=== PATIENT | female | born 1945 | race Caucasian/White ===

== ENCOUNTER 2019-07-06 19:46 | Emergency (ER) | payer OTHER ==
[~2019-07-06] VITALS: Ht 160 cm; Wt 55.1 kg
--- NOTE | 2019-07-06 20:05 | NUR ---
BIB FROM HOME TO ER BED 10. AAOX4. NO RESP DISTRESS NOTED, BREATHING EVEN AND UNLABORED. C/O GEN WEAKNESS AND INTERMITENT CHEST PRESSURE FOR THE PAST 3 DAYS. PT REPORTS THAT SHE HAS BEEN FELLING WEAK FOR AWHILE BUT WORST IN THE PAST FEW DAYS. SHE IS ALSO C/O INTERMITENT CHEST PRESSURE, NON RADIATING WHICH IS NOT PRESENT AT THIS TIME. 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 PT HAS PACE MAKER ON LEFT UPPER CHEST SINUS ON MONITOR. AWAITING MD FOR EVAL.
[2019-07-06] MEDS ORDERED: hydrALAZINE HCL IV 20 MG VIAL ONE (20:28)
[2019-07-06] MEDS ORDERED: hydrALAZINE HCL IV 20 MG VIAL IV ONE (20:30)
[2019-07-06 20:36] LABS: BASOPHILS # (AUTO) 0.1 /CMM (0.0-0.2); BASOPHILS % (AUTO) 1.3 % (0.0-2.0); EOSINOPHILS % (AUTO) 3.4 % (0.0-6.0); HEMATOCRIT 44 % (33-45); HEMOGLOBIN 14.6 g/dL (11.5-14.8); LYMPHOCYTES # (AUTO) 1.5 /CMM (0.8-4.8); LYMPHOCYTES % (AUTO) 17.7 % (20.0-44.0); MEAN CORPUSCULAR HGB CONC 34 g/dl (31.0-36.0); MEAN CORPUSCULAR VOLUME 89 fL (82-100); MONOCYTES # (AUTO) 0.6 /CMM (0.1-1.30); MONOCYTES % (AUTO) 6.8 % (2.0-12.0); NEUTROPHILS # (AUTO) 6.1 /CMM (1.8-8.9); NEUTROPHILS % (AUTO) 70.8 % (43.0-81.0); PLATELET COUNT (AUTO) 277 /CMM (150-450); WHITE BLOOD COUNT (AUTO) 8.6 K/uL (4.3-11.0)
--- NOTE | 2019-07-06 20:36 | NUR ---
WAS AT BEDSIDE FOR EVAL. ORDERS RECEIVED, NOTED AND CARIED OUT. IV LINE OBTAIBNED ON R AC 20G. BLOOD DRAWN AND GIVEN TO FABRIC COATING SUPERVISOR AT BEDSIDE
--- NOTE | 2019-07-06 20:40 | NUR ---
order for apresoline 10mg received from . bp noted at 162/89, verified with md if she still want med to be given and ordered to hold med for now. 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 meds on hold for now
--- NOTE | 2019-07-06 20:43 | NUR ---
Note zachariah in EDM - 07/06/19 at 205 by SIS MD WAS AT BEDSIDE FOR EVAL. ORDERS RECEIVED, NOTED AND CARIED OUT. IV LINE OBTAIBNED ON R AC 20G. BLOOD DRAWN AND GIVEN TO FOOD AND DRUG INSPECTOR AT BEDSIDE
--- NOTE | 2019-07-06 20:43 | NUR ---
WAS AT BEDSIDE FOR EVAL. ORDERS RECEIVED, NOTED AND CARIED OUT. IV LINE OBTAIBNED ON R AC 20G. BLOOD DRAWN AND GIVEN TO CENTRIFUGAL MACHINE TENDER AT BEDSIDE
--- NOTE | 2019-07-06 21:21 | NUR ---
BP OF 161/95 REPORTED TO MD. ORDERED TO CONTINUE TO HOLD MEDICATION ORDERED
--- NOTE | 2019-07-06 21:31 | NUR ---
CALLED [facility] TO INITIATE TRANSFER
[2019-07-06 21:33] LABS: CALCIUM, SERUM 8.8 mg/dL (8.5-10.1); CARBON DIOXIDE 30 mmol/L (21-32); CHLORIDE 102 mmol/L (98-107); CREATININE 1.1 mg/dL (0.6-1.3); GLUCOSE 108 mg/dL (74-106); POTASSIUM 3.7 mmol/L (3.5-5.1); SODIUM SERUM 140 mmol/L (136-145); UREA NITROGEN, BLOOD 17 mg/dL (7-18)
--- NOTE | 2019-07-06 22:03 | NUR ---
SPOKE TO GARRICK AT [facility]. PT GOING TO [facility]. ADMITTING DR PAREKH. [facility] ETA [id number]
--- NOTE | 2019-07-06 23:07 | NUR ---
Patient does not wish to proceed with medical care recommended by Tammy Morgan. Patient given information related to possible complications, up to and including , which could occur as a result of leaving the hospital at this time. Patient verbalizes understanding of risks involved due to leaving against medical advice. Patient has signed AMA form.
--- NOTE | 2019-07-06 23:08 | NUR ---
VERIFIED WITH MD IF APRESOLINE STILL ON HOLD. BP OF 166/101 REPORTED AND RECEEIVED ORDER TO CANCEL THE MED.
--- NOTE | 2019-07-07 00:14 | NUR ---
PT'S SON IS AT BEDSIDE FOR SPORTS SPECIALIST.
--- NOTE | 2019-07-07 00:30 | NUR ---
IV removed. Catheter intact and site benign. Pressure and 4x4 applied to site. No bleeding noted. Pt ambulatory with a steady gait
[2019-07-07 02:07] VITALS: BP 159/94
== END 2019-07-07 00:30 | disposition left against medical advice (07) ==
LOC: ER 19:46
DX: R07.89 Other chest pain (principal); I10 Essential (primary) hypertension; J44.9 Chronic obstructive pulmonary disease, unspecified; F17.200 Nicotine dependence, unspecified, uncomplicated; Z95.0 Presence of cardiac pacemaker; Z95.2 Presence of prosthetic heart valve; Z88.5 Allergy status to narcotic agent
CPT/HCPCS: 36415; 71045; 80048; 84484; 85025; 85730; 93005 ×2; 99284; J0360

== ENCOUNTER 2024-01-15 17:17 | Emergency (ER) | payer OTHER ==
[~2024-01-15] VITALS: Ht 167.6 cm; Wt 49.9 kg
[2024-01-15 18:45] VITALS: BP 172/94; TEMP 98.4; O2SAT 100
== END 2024-01-15 18:47 | disposition home or self-care (01) ==
LOC: ER 17:25
DX: R68.2 Dry mouth, unspecified (principal); I10 Essential (primary) hypertension; J44.9 Chronic obstructive pulmonary disease, unspecified; Z88.5 Allergy status to narcotic agent